=== PATIENT | male | born 1970 | race Caucasian/White ===

== ENCOUNTER → 2020-06-06 | Outpatient (CLI) | payer MEDICARE, MEDICAID ==
[~2020-06-06] MED LIST: ALBU2.5V8 INH; CARB200T2 PO; DABI75CA3 PO; FLUT10.6 IH; FLUT16SP2 NS; FURO-69 PO; GABA300S PO; HYDR-2155 PO; HYDR12TA PO; LEXAPRO10 MG PO; METO25TA4 PO; MONT10TA80 PO; OLAN2.5T3 PO; ROPI1TAB4 PO; TRAV5DRO OP; [UNRECOGNIZED DRUG - OTHER]
[2020-06-06 14:02] LABS: BASO # 0.1 x10^3/uL (0.0-0.2); BASO % 1 % (0-3); EOS # 0.1 x10^3/uL (0.0-0.7); EOS % 1 % (0-3); HEMATOCRIT 50.7 % (39.0-53.0); HEMOGLOBIN 17.3 g/dL (13.0-17.5); LYMPH % 26 % (24-48); MEAN CORPUSCULAR HEMOGLOBIN 32 pg (25-35); MEAN CORPUSCULAR HGB CONC 34 g/dL (31-37); MEAN CORPUSCULAR VOLUME 93 fL (79-100); MONO # 0.6 x10^3/uL (0.0-1.1); MONO % 7 % (0-9); NEUT % 65 % (31-73); PLATELET COUNT 341 x10^3/uL (140-400); RED BLOOD COUNT 5.46 x10^6/uL (4.30-5.70); RED CELL DISTRIBUTION WIDTH 13.5 % (11.5-14.5); WHITE BLOOD COUNT 7.8 x10^3/uL (4.0-11.0)
[2020-06-06 14:10] LABS: ALBUMIN 3.7 g/dL (3.4-5.0); ALBUMIN/GLOBULIN RATIO 0.9 (1.0-1.7); CALCIUM 9.2 mg/dL (8.5-10.1); CREATININE 1.1 mg/dL (0.7-1.3); GFR 70.3; POTASSIUM 3.7 mmol/L (3.5-5.1); TOTAL BILIRUBIN 0.2 mg/dL (0.2-1.0)
[2020-06-07 14:56] LABS: CARBAM 8.8 mcg/mL (4.0-12.0)
== END ==
LOC: LAB 12:26
PROVIDERS: ATTEND Psychiatry & Neurology Neurology
DX: R56.9 Unspecified convulsions (principal)
CPT/HCPCS: 36415; 80053; 80156; 85025

== ENCOUNTER → 2020-11-01 | Outpatient (CLI) | payer MEDICARE, MEDICAID ==
[2020-11-01 16:00] LABS: BASO # 0.1 x10^3/uL (0.0-0.2); BASO % 1 % (0-3); EOS # 0.1 x10^3/uL (0.0-0.7); EOS % 1 % (0-3); HEMATOCRIT 49.1 % (39.0-53.0); LYMPH % 22 % (24-48); MEAN CORPUSCULAR HEMOGLOBIN 33 pg (25-35); MEAN CORPUSCULAR HGB CONC 35 g/dL (31-37); MEAN CORPUSCULAR VOLUME 94 fL (79-100); MONO # 0.5 x10^3/uL (0.0-1.1); MONO % 5 % (0-9); NEUT # 6.6 x10^3uL (1.8-7.7); NEUT % 71 % (31-73); PLATELET COUNT 339 x10^3/uL (140-400); RED BLOOD COUNT 5.21 x10^6/uL (4.30-5.70); RED CELL DISTRIBUTION WIDTH 13.8 % (11.5-14.5); WHITE BLOOD COUNT 9.2 x10^3/uL (4.0-11.0)
[2020-11-01 16:19] LABS: ALBUMIN 3.8 g/dL (3.4-5.0); ALBUMIN/GLOBULIN RATIO 0.9 (1.0-1.7); CALCIUM 8.9 mg/dL (8.5-10.1); GFR 78.5; TOTAL BILIRUBIN 0.5 mg/dL (0.2-1.0)
[2020-11-02 13:35] LABS: CARBAM 7.6 mcg/mL (4.0-12.0)
== END ==
LOC: LAB 15:10
PROVIDERS: ATTEND Psychiatry & Neurology Neurology
DX: R56.9 Unspecified convulsions (principal)
CPT/HCPCS: 36415; 80053; 80156; 85025